=== PATIENT | female | born 1960 ===

== ENCOUNTER 2023-07-23 08:53 | Outpatient (CLI) | payer OTHER | END 2023-07-23 09:02 | disposition home or self-care (01) | LOC: MRI 08:53 | PROVIDERS: ATTEND Orthopaedic Surgery | DX: M54.59 Other low back pain (principal) | CPT/HCPCS: 72148 ==

== ENCOUNTER 2023-07-23 09:51 | Outpatient (CLI) | payer OTHER | END 2023-07-23 09:52 | disposition home or self-care (01) | LOC: NUCLEAR 09:51 | PROVIDERS: ATTEND Orthopaedic Surgery | DX: M81.0 Age-related osteoporosis without current pathological fracture (principal) ==